=== PATIENT | male | born 1950 | race Caucasian/White ===

== ENCOUNTER 2018-05-22 20:35 | Emergency (ER) | payer MEDICARE, OTHER ==
[~2018-05-22] VITALS: Ht 167.6 cm; Wt 90.0 kg
[~2018-05-22 20:35] MED LIST: ABILIFY5 MG PO; CENTRUM1 TAB PO; LEXAPRO 5MG5 MG PO; MULTIPLE VITAMI1 CAP PO; NEXIUM 20MG CAP20 MG PO; PREVACID 30MG30 M1 PO
[2018-05-22] MEDS ORDERED: ASPIRIN 81M81 MG/TA2 PO (20:51)
[2018-05-22] MEDS ORDERED: CRESTOR 10MG10 MG PO (20:51)
[2018-05-22] MEDS ORDERED: NEXIUM 20MG20 MG PO (20:52)
[2018-05-22 22:03] VITALS: BP 119/91; PULSE 82; TEMP 98.8
== END 2018-05-22 21:50 | disposition home or self-care (01) ==
LOC: COL.ER 20:35
DX: S61.211A Laceration without foreign body of left index finger without damage to nail, initial encounter (principal); K21.9 Gastro-esophageal reflux disease without esophagitis; E78.5 Hyperlipidemia, unspecified; Z23 Encounter for immunization; Z79.82 Long term (current) use of aspirin; W26.0XXA Contact with knife, initial encounter

== ENCOUNTER → 2018-05-29 | Emergency (ER) | payer MEDICARE, OTHER ==
[~2018-05-29] MED LIST changes: +ASPIRIN 81M81 MG/TA2 PO; +CRESTOR 10MG10 MG PO; +NEXIUM 20MG20 MG PO
[2018-05-29 12:08] VITALS: BP 123/90; PULSE 78; TEMP 98.7
== END ==
LOC: COL.ER 11:51
DX: S61.211D Laceration without foreign body of left index finger without damage to nail, subsequent encounter (principal); X58.XXXD Exposure to other specified factors, subsequent encounter

== ENCOUNTER → 2018-12-02 | Outpatient (CLI) | payer MEDICARE, OTHER | LOC: COL.RAD 09:30 | DX: M47.812 Spondylosis without myelopathy or radiculopathy, cervical region (principal); M48.02 Spinal stenosis, cervical region ==

== ENCOUNTER → 2019-08-07 | Outpatient (CLI) | payer MEDICARE, OTHER | LOC: COL.RAD 12:22 | DX: M75.81 Other shoulder lesions, right shoulder (principal); S46.111A Strain of muscle, fascia and tendon of long head of biceps, right arm, initial encounter | CPT/HCPCS: A9585; Q9967 ==

== ENCOUNTER 2019-09-08 09:54 | Inpatient (IN) | payer MEDICARE, OTHER ==
[~2019-09-08] VITALS: Ht 170.2 cm; Wt 90.0 kg
[2019-09-08] MEDS ORDERED: MASON NATURAL2000 IU (10:25)
[2019-09-08] MEDS ORDERED: OMEGA-3 1000 MG1 CAP PO (10:25)
[2019-09-08] MEDS ORDERED: CENTRUM SILVER1 CTB PO (10:25)
[2019-09-08 10:43] LABS: BASO # 0.1 (0.0-0.2); BASO % 0.7 % (0.0-2.0); EOS # 0.1 (0.0-0.7); EOS % 1.8 % (0-4.0); GRAN # 3.9 (1.4-6.5); GRAN % 50.6 % (42.2-75.2); HEMATOCRIT 44.3 % (42.0-52.0); HEMOGLOBIN 14.8 g/dl (13.5-18.0); LYMPH # 3.2 (1.2-3.4); LYMPH % 41.2 % (20.0-51.0); MEAN CELL VOLUME 88 fl (80.0-100.0); MEAN CORPUSCULAR HEMOGLOBIN 29 pg (27.0-31.0); MEAN CORPUSCULAR HGB CONC 33 g/dl (33.0-37.0); MEAN PLATELET VOLUME 10.2 fl (7.4-10.4); MONO # 0.4 (0.1-0.6); MONO % 5.3 % (1.7-9.3); PLATELET COUNT 187 K/mm3 (130-400); RED BLOOD COUNT 5.05 M/mm3 (4.20-5.60); REDCELL DISTRIBUTION WIDTH-CV 14.2 % (11.5-14.5)
[2019-09-08 10:49] LABS: INR 0.9 (0.8-3.0)
[2019-09-08 10:51] LABS: ALANINE AMINOTRANSFERASE 26 U/L (21-72); ALBUMIN 4.5 gm/dL (3.5-5.0); ALKALINE PHOSPHATASE 83 U/L (50-136); ANION GAP 12 mmol/L (7-16); AST,SGOT 29 U/L (15-37); BILIRUBIN,TOTAL 0.6 mg/dL (0.0-1.0); BLOOD UREA NITROGEN 16 mg/dL (9-20); CALCIUM 9.3 mg/dL (8.4-10.2); CARBON DIOXIDE 25 mmol/L (22-30); CHLORIDE 103 mmol/L (98-107); CREATININE, serum 0.91 (0.66-1.25); GLUCOSE 151 mg/dL (74-106); POTASSIUM 3.9 mmol/L (3.4-5.0); SODIUM 140 mmol/L (137-145); TOTAL PROTEIN 7.7 gm/dL (6.4-8.2)
[2019-09-08 11:02] LABS: TROPONIN-I < 0.012 ng/mL (0.000-0.035)
[2019-09-08 14:00] VITALS: BP 144/82; PULSE 62; TEMP 98
--- NOTE | 2019-09-08 15:00 | NUR ---
Patient alert and oriented, answers questions appropriately. Speech clear, hand livestock nutritionist equal. See assessment. Oriented to room/unit. No c/o at this time.
[2019-09-08 16:55] VITALS: BP 143/87; PULSE 73; TEMP 98.1
--- NOTE | 2019-09-08 17:55 | NUR ---
Dr Cooper notified of consult.
[2019-09-08 21:47] VITALS: BP 116/74; PULSE 64; TEMP 98.2
[2019-09-09 00:32] VITALS: BP 100/47; PULSE 62; TEMP 98.2
[2019-09-09 04:53] VITALS: BP 123/60; PULSE 60; TEMP 98.1
[2019-09-09 07:08] VITALS: BP 140/79; PULSE 70; TEMP 97.8
[2019-09-09 07:17] LABS: BASO # 0.1 (0.0-0.2); BASO % 0.8 % (0.0-2.0); EOS # 0.2 (0.0-0.7); EOS % 2.6 % (0-4.0); GRAN # 3.6 (1.4-6.5); GRAN % 54.1 % (42.2-75.2); HEMATOCRIT 40.9 % (42.0-52.0); HEMOGLOBIN 13.6 g/dl (13.5-18.0); LYMPH # 2.3 (1.2-3.4); LYMPH % 35.2 % (20.0-51.0); MEAN CELL VOLUME 87 fl (80.0-100.0); MEAN CORPUSCULAR HEMOGLOBIN 29 pg (27.0-31.0); MEAN CORPUSCULAR HGB CONC 33 g/dl (33.0-37.0); MEAN PLATELET VOLUME 9.7 fl (7.4-10.4); MONO # 0.5 (0.1-0.6); MONO % 6.8 % (1.7-9.3); PLATELET COUNT 186 K/mm3 (130-400); RED BLOOD COUNT 4.69 M/mm3 (4.20-5.60); REDCELL DISTRIBUTION WIDTH-CV 14.1 % (11.5-14.5)
[2019-09-09 07:29] LABS: ALBUMIN 3.8 gm/dL (3.5-5.0); BILIRUBIN,TOTAL 0.5 mg/dL (0.0-1.0); CALCIUM 9.2 mg/dL (8.4-10.2); CREATININE, serum 0.91 (0.66-1.25); POTASSIUM 3.9 mmol/L (3.4-5.0); TOTAL PROTEIN 7.1 gm/dL (6.4-8.2)
[2019-09-09] MEDS ORDERED: LIPITOR 40MG TA40 MG PO (09:03)
[2019-09-09] MEDS ORDERED: PLAVIX 75MG TAB75 MG PO (09:03)
[2019-09-09] MEDS ORDERED: ZESTRIL 5MG5 MG PO (09:04)
[2019-09-09 09:05] LABS: CHOLESTEROL RISK RATIO 4.9
--- NOTE | 2019-09-09 09:15 | NUR ---
Patient alert and oriented, answers questions appropriately. See assessment. No c/o pain or discomfort.
--- NOTE | 2019-09-09 11:18 | NUR ---
Discharge instructions reviewed with patient and spouse, verbalized understanding. Discharged via wheelchair to auto/home with spouse at 1118.
--- NOTE | 2019-09-09 11:56 | NUR ---
Beaver Trapper met with patient to discuss discharge planning. Patient lives in [place] with his Martha (ph#[phone]). Patient sees Dr. Jules for primary care and obtains medications from [facility] with no difficulties. Patient does not use any DME and is independent with ADLS. Patient reports he is in the process of setting up Advance Directives with his comber setter. Patient plans to return home upon discharge.
--- NOTE | 2019-09-09 12:17 | NUR ---
Initial visit; Patient thanked Hearing Healthcare Practitioner for looking in on him and offering comfort and spiritual care.
== END 2019-09-09 11:18 | disposition home or self-care (01) | DRG 66 ==
LOC: COL.ER 09:54 → SURG 11:57
PROVIDERS: Emergency Medicine; Nurse Practitioner Family; ADMIT Student in an Organized Health Care Education/Training Program
DX: I63.511 Cerebral infarction due to unspecified occlusion or stenosis of right middle cerebral artery (principal); K21.9 Gastro-esophageal reflux disease without esophagitis; E78.5 Hyperlipidemia, unspecified; R47.81 Slurred speech; I10 Essential (primary) hypertension; H91.90 Unspecified hearing loss, unspecified ear; Z88.0 Allergy status to penicillin; Z79.82 Long term (current) use of aspirin
CPT/HCPCS: 99239; A9585; G0378; J1650; Q9967

== ENCOUNTER 2021-11-04 08:09 | Day surgery (SDC) | payer MEDICARE, OTHER ==
[~2021-11-04] VITALS: Ht 170.2 cm; Wt 94.9 kg
[~2021-11-04 08:09] MED LIST changes: +CENTRUM SILVER1 CTB PO; +LIPITOR 40MG TA40 MG PO; +MASON NATURAL2000 IU; +OMEGA-3 1000 MG1 CAP PO; +PLAVIX 75MG TAB75 MG PO; +ZESTRIL 5MG5 MG PO
[2021-11-04 09:08] VITALS: BP 124/72; PULSE 67; TEMP 98.8
[2021-11-04] MEDS ORDERED: PROTONIX 40MG T40 MG PO (09:13)
[2021-11-04] MEDS ORDERED: CYMBALTA 30MG30 MG PO (09:14)
[2021-11-04] MEDS ORDERED: PEPCID 20MG TAB20 MG PO (09:14)
[2021-11-04] MEDS ORDERED: AMBIEN 10MG10 MG PO (09:15)
[2021-11-04] MEDS ORDERED: PHARMASSURE ZIN50 MG PO (09:15)
[2021-11-04] MEDS ORDERED: SINGULAIR 110 MG/TAB PO (09:18)
[2021-11-04] MEDS ORDERED: B-121000 MCG PO (09:18)
[2021-11-04] MEDS ORDERED: BETAMETHASONE D15 G1 TP (09:19)
[2021-11-04] MEDS ORDERED: ZYRTEC 10MG10 MG PO (09:19)
[2021-11-04] MEDS ORDERED: ATHLETE'S FOOT1% TP (09:20)
[2021-11-04 10:10] VITALS: BP 133/83; PULSE 66; TEMP 98.8
--- NOTE | 2021-11-04 10:20 | NUR ---
PT ARRIVED TO BAY 2, VSS. DENIES NAUSEA, DROWSY BUT A&O. DENIES NEEDS AT THIS TIME, CALL LIGHT WITHIN REACH.
[2021-11-04 10:35] VITALS: BP 121/68; PULSE 62
[2021-11-04 10:50] VITALS: BP 133/74; PULSE 62
[2021-11-04 11:10] VITALS: BP 108/66; PULSE 75; TEMP 97.4
--- NOTE | 2021-11-04 11:30 | NUR ---
PT MET DISCHARGE CRITERIA, VSS. IV REMOVED WITH OUT COMPLICATIONS, CATHETER INTACT. DISCHARGE INSTRUCTIONS REVIEWED. PT VERBALIZED UNDERSTANDING. PT DC TO HOME VIA WHEELCHAIR TO FRONT ENTRANCE.
== END 2021-11-04 11:54 | disposition home or self-care (01) ==
LOC: SDCO 08:09
DX: K22.2 Esophageal obstruction (principal); K22.70 Barrett's esophagus without dysplasia; K21.9 Gastro-esophageal reflux disease without esophagitis
CPT/HCPCS: C1726; J2704; J7120

== ENCOUNTER 2021-12-12 01:09 | Inpatient (IN) | payer MEDICARE, OTHER ==
[~2021-12-12] VITALS: Ht 167.6 cm; Wt 94.6 kg
[2021-12-12] VITALS (814 sets, daily range): BP systolic 94–130; BP diastolic 52–91; PULSE 48–137; TEMP 98–98.6; O2SAT 77–100
[~2021-12-12 01:09] MED LIST changes: +AMBIEN 10MG10 MG PO; +ATHLETE'S FOOT1% TP; +B-121000 MCG PO; +BETAMETHASONE D15 G1 TP; +CYMBALTA 30MG30 MG PO; +PEPCID 20MG TAB20 MG PO; +PHARMASSURE ZIN50 MG PO; +PROTONIX 40MG T40 MG PO; +SINGULAIR 110 MG/TAB PO; +ZYRTEC 10MG10 MG PO
[2021-12-12 01:26] LABS: BASO # 0.1 K/mm3 (0.0-0.2); EOS # 0.4 K/mm3 (0.0-0.7); EOS % 5.3 % (0.0-4.0); GRAN # 3.3 K/mm3 (1.4-6.5); GRAN % 40.8 % (42.2-75.2); HEMATOCRIT 42.4 % (42.0-52.0); HEMOGLOBIN 14.2 g/dl (13.5-18.0); LYMPH # 3.5 K/mm3 (1.2-3.4); LYMPH % 42.4 % (20.0-51.0); MEAN CELL VOLUME 86 fl (80.0-100.0); MEAN CORPUSCULAR HEMOGLOBIN 29 pg (27-31); MEAN CORPUSCULAR HGB CONC 34 g/dl (33.0-37.0); MEAN PLATELET VOLUME 9.3 fl (7.4-10.4); MONO # 0.8 K/mm3 (0.1-0.6); MONO % 10.3 % (1.7-9.3); PLATELET COUNT 180 K/mm3 (130-400); RED BLOOD COUNT 4.95 M/mm3 (4.20-5.60); REDCELL DISTRIBUTION WIDTH-CV 14.6 % (11.5-14.5)
[2021-12-12 01:45] LABS: ALBUMIN 4.2 gm/dL (3.4-4.8); BILIRUBIN,TOTAL 0.6 mg/dL (0.2-1.2); CALCIUM 9.1 mg/dL (8.4-10.2); CREATININE, serum 0.98 mg/dL (0.72-1.25); POTASSIUM 3.7 mmol/L (3.5-4.5); TOTAL PROTEIN 7.5 gm/dL (6.2-8.1)
[2021-12-12 01:46] LABS: PROTHROMBIN TIME 11.3 SECONDS (9.7-12.8)
[2021-12-12 01:48] LABS: PARTIAL THROMBOPLASTIN TIME 28.3 SECONDS (26.0-37.0)
[2021-12-12 01:50] LABS: TROPONIN-I 0.018 ng/mL (0.00-0.033)
[2021-12-12 02:24] LABS: TSH w REFLEX 4.479 uIU/mL (0.350-4.940)
--- NOTE | 2021-12-12 02:45 | NUR ---
Received report from ED nurse
--- NOTE | 2021-12-12 02:57 | NUR ---
Patient arrives to ICU room 4 via ED stretcher. Patient is alert and oriented and transfers independently to ICU bed. Inital HR ranging 130-140s, AFIB. Other vitals within normal limits. Patient arrives on room air. He is receiving heparin and cardizem drips, see IV drip titration flowsheet. Patient states he does not feel any pain when sitting upright and immoble, however, he feels some chest pressure upon exertion rated 2/10. Sara, hospitalist, aware of patient's arrival.
--- NOTE | 2021-12-12 03:20 | NUR ---
Cardizem titrated to 5mg/hr per hospitalist, Sara, who is at bedside.
--- NOTE | 2021-12-12 03:30 | NUR ---
Patient's belongings include street clothes and a pair of glasses. Patient denies having brought a cellphone or wallet with him. He denies having any removable jewelry on his person. Patient states he does wear bilateral hearing aids, but that he left them at home.
--- NOTE | 2021-12-12 05:20 | NUR ---
Patient converted to SB with HR as low as 48. Sara notified. Orders received to set cardizem to standby and obtain EKG.
--- NOTE | 2021-12-12 07:00 | NUR ---
PT RESTING IN BED. CARDIZEM ON HOLD D\T SB. HEPARIN RUNNING. VSS. WILL CONTINUE TO MONTIOR.
--- NOTE | 2021-12-12 09:36 | NUR ---
Initial visit; Patient thanked Merchandise Appraiser for looking in on him and offering comfort and God's blessings. Merchandise Appraiser will continue to check on patient.
--- NOTE | 2021-12-12 10:28 | NUR ---
buffing line set up worker met with patient to complete intake. Patient reports that he lives at home with his Martha ([phone]) in [place]. Patient reports to being fully independent with his ADL's and does not utilize any DME to assist with mobility. Patient has no home oxygen needs. PCP is Dr.Preeti Dent and he utilizes [facility] for medications with no cost difficulty. Patient reports that he does have a DPOA-HC established and has a copy of it at home. States that his first agent listed is his Martha.
--- NOTE | 2021-12-12 16:10 | NUR ---
Pt transfered to laborer demolition with laborer demolition RN's.
--- NOTE | 2021-12-12 16:49 | NUR ---
PATIENT ALERT AND ORIENTED. NO REPORTS OF CHEST PAIN. FAMILY AT SIDE. SEE MERGE FOR PROCEDURE DETAILS, VS, HEMODYNAMIC MONITORING AND MEDICATION ADMINISTRATION.
--- NOTE | 2021-12-12 17:05 | NUR ---
PT BACK FROM [facility] BLIND DIRECTOR. PT IS AXOX4. PT'S VSS. PT STILL SB ON TELE. PT TO BE TRANSFERED FOR CARDIOTHORASIC SURGERY CONSULT. PT AND AWARE. WILL CONTINUE TO ANNEMARIE.
--- NOTE | 2021-12-12 17:50 | NUR ---
ATTEMPTED TO REMOVE 2ML OF AIR FROM TR BAND. SITE STARTED TO BLEED. AIR REPLACED AND SITE CLEANED. WILL CONTINUE TO MONTIOR.
--- NOTE | 2021-12-12 17:52 | NUR ---
REPORT CALLED TO [facility] AT [facility]. ALL QUESTIONS ANSWERED. EMS SHOULD ARRIVE AT 1800 FOR TRANSPORT. FAMILY UPDATED.
--- NOTE | 2021-12-12 18:23 | NUR ---
[facility] BLOOM AT [facility] CALLED AND NOTIFIED OF HIGH XA LEVEL, HEPARIN ON HOLD FOR 2 HOURS, AND THE BLEEDING FROM TR BAND WHEN AIR REMOVED.
--- NOTE | 2021-12-12 18:54 | NUR ---
PT TRANSFERED TO [facility] BY EMS. REPORT GIVEN TO EMS.
== END 2021-12-12 18:53 | disposition short-term general hospital (02) | DRG 287 ==
LOC: COL.ER 01:09 → ICU 02:28
PROVIDERS: Emergency Medicine; Nurse Practitioner; Student in an Organized Health Care Education/Training Program; ADMIT Internal Medicine
PROC: 4A023N7 Measurement of Cardiac Sampling and Pressure, Left Heart, Percutaneous Approach (ICD-10-PCS; principal; 2021-12-12)
PROC: B2111ZZ Fluoroscopy of Multiple Coronary Arteries using Low Osmolar Contrast (ICD-10-PCS; 2021-12-12)
DX: I48.91 Unspecified atrial fibrillation (principal); I25.110 Atherosclerotic heart disease of native coronary artery with unstable angina pectoris; I10 Essential (primary) hypertension; K21.9 Gastro-esophageal reflux disease without esophagitis; F32.A Depression, unspecified; Z86.73 Personal history of transient ischemic attack (TIA), and cerebral infarction without residual deficits; Z79.82 Long term (current) use of aspirin
CPT/HCPCS: 99223-AI; C1769; C1887; J1644; J2250; J2270; J3010

== ENCOUNTER 2021-12-23 14:42 | Inpatient (IN) | payer MEDICARE, OTHER ==
[~2021-12-23] VITALS: Ht 175.3 cm; Wt 91.7 kg
[2021-12-23] MEDS ORDERED: TYLENOL 325MG325 MG PO (15:39)
[2021-12-23] MEDS ORDERED: PACERONE200 MG PO (15:41)
[2021-12-23] MEDS ORDERED: CORDARONE200 MG/TAB PO (15:41)
[2021-12-23] MEDS ORDERED: DULCOLAX TAB5 MG PO (15:42)
[2021-12-23] MEDS ORDERED: CEPHALEXIN500 M1 PO (15:44)
[2021-12-23] MEDS ORDERED: DSS PO (15:45)
[2021-12-23] MEDS ORDERED: LASIX 40MG TABL40 MG PO (15:46)
[2021-12-23] MEDS ORDERED: MIRALAX PA17 GM/Dose PO ×3 (15:46→15:47)
[2021-12-23] MEDS ORDERED: K-DUR20 MEQ PO (15:48)
[2021-12-23] MEDS ORDERED: ASPIRIN E.C. 8181 MG PO (15:49)
[2021-12-23] MEDS ORDERED: LIPITOR 80MG80 MG PO (15:49)
[2021-12-23] MEDS ORDERED: CENTRUM SILVER1 TAB PO (15:50)
[2021-12-23] MEDS ORDERED: ZYRTEC 10MG10 MG PO (15:50)
[2021-12-23] MEDS ORDERED: PLAVIX 75MG TAB75 MG PO (15:51)
[2021-12-23] MEDS ORDERED: CYMBALTA 30MG30 MG PO (15:51)
[2021-12-23] MEDS ORDERED: EPA FISH OIL1000 MG PO (15:51)
[2021-12-23] MEDS ORDERED: FLONASEALLERGY NS (15:52)
[2021-12-23] MEDS ORDERED: PROTONIX 40MG T40 MG PO (15:53)
[2021-12-23] MEDS ORDERED: SINGULAIR 110 MG/TAB PO (15:53)
[2021-12-23] MEDS ORDERED: PHARMASSURE ZIN50 MG PO (15:54)
[2021-12-23] MEDS ORDERED: B-12 500 MCG PO (15:54)
--- NOTE | 2021-12-23 17:20 | NUR ---
Pt. arrived to IPR unit via transportation van from [facility] Pt. transferred to and escorted to room. Admission intake and physical exam completed. Orientation provided to room/unit. Patient had no further questions. Call light is within his reach
[2021-12-23 18:09] VITALS: BP 121/69; PULSE 78; TEMP 98.2
[2021-12-24 05:50] VITALS: BP 113/65; PULSE 69; TEMP 98.9
--- NOTE | 2021-12-24 07:02 | NUR ---
Shift report received from private wealth advisor RN. Pt. awake and sitting up in bedside chair. He denies pain or discomfort. Denies pain or discomfort. Call light is within his reach
--- NOTE | 2021-12-24 07:04 | NUR ---
pt got up 2-3 times during the noc without calling for help first, once bed alarm went off he stopped and waited for staff to come help. no reported hallucinations this shift. up to restroom and in room with SBA. wasn't able to use his home cpap during the noc, stated he couldn't get it to work, RT was going to look at it. no c/o pain or discomfort, chest incision CDI.
--- NOTE | 2021-12-24 11:40 | NUR ---
Pt. sitting in recliner in room. Chair alarm is on. He has returned from group therapy. Denies pain or discomfort. Incisions to chest and left post. knee are CDI, AUTO PARKER. Reminded pt. to ask for help before getting up on his own. He v/u. He denies any hallucinations throughout shift so far. Call light is within his reach
--- NOTE | 2021-12-24 12:46 | NUR ---
SW met with patient to complete intake. Patient states that he lives with Martha [phone] in [facility]. Patient states that he did not utilize a walker prior to stay, but has been utilizing one in facility. Patient states he does not utilize any home health services at this time and is independent with ADL's. PCP is Dr. Dent, pharmacy is [facility]. DPOA/HC is spouse. Patient states he plans to return to his home upon DC. SW will continue to follow. DC plan: home
[2021-12-24 17:41] VITALS: BP 108/50; PULSE 95; TEMP 97.6
--- NOTE | 2021-12-24 18:33 | NUR ---
Pt. supervised as he repositioned from bed to recliner. Chair alarm is turned on. Pt. states that he would like to sit up for awhile and put his feet up. He denies pain or discomfort. He reports some itching along mediansternotomy incision. Peeling skin & scabs noted along incision. Edges are well-approximated. Moisturizing lotion applied to itchy areas of skin. Pt. denies further needs at this time. Call light is within his reach
--- NOTE | 2021-12-25 05:00 | NUR ---
PT reports nose bleed from right nostril after cleaning out nares, small amt of bright red blood observed on gauze pad, replaced with new gauze, bleeding stopped after a few minutes.
[2021-12-25 05:12] VITALS: BP 135/57; PULSE 69; TEMP 98.2
--- NOTE | 2021-12-25 08:00 | NUR ---
Patient sitting up in the recliner eating breakfast. A&Ox4. VSS. Denies pain and discomfort. Reports itching at incision site mid sternal. Call light within reach
[2021-12-25 17:43] VITALS: BP 122/58; PULSE 68; TEMP 98.2
--- NOTE | 2021-12-25 18:20 | NUR ---
Patient sat up in the recliner and bench most of the day. A&O, with intermittent confusion. Nursing staff and reorienting the patient as needed. Incision midline sternum and left posterior knee. Patient walked in the hallway with walker and walked behind the patient will the wheelchair. Patient tolerated walking. Patient independent with repositioning and feeds. Denies pain and discomfort. Uses heart pillow to brace with exertion. Call light within reach
[2021-12-26 06:05] VITALS: BP 124/57; PULSE 67; TEMP 97.9
--- NOTE | 2021-12-26 06:47 | NUR ---
Shift report received from music theory teacher RN. Pt resting in bed, awake. Denies pain or discomfort. Mod I in room. Denies further needs at this time. Call light is within his reach
--- NOTE | 2021-12-26 10:20 | NUR ---
Pt has returned to room after walking with PT. He is resting in recliner in room. He denies pain or discomfort. Denies further needs. Call light is within his reach
--- NOTE | 2021-12-26 15:35 | NUR ---
Pt sitting in recliner in room. He has completed afternoon PT. Hospitalist in room for consult. Pt. denies pain or discomfort. Denies further needs. Call light is within his reach
[2021-12-26 16:39] VITALS: BP 117/54; PULSE 65; TEMP 98.8
--- NOTE | 2021-12-26 20:20 | NUR ---
Patient is resting in bed, watching TV. Alert and oriented x 4, VSS. Hard of hearing. Assessment completed, medications provided. No other needs at this time. Call light within reach.
--- NOTE | 2021-12-27 05:49 | NUR ---
Patient had an uneventful night. Report will be given to day RN.
[2021-12-27 05:51] VITALS: BP 122/54; PULSE 70; TEMP 98.1
[2021-12-27 06:35] LABS: CALCIUM 9.1 mg/dL (8.4-10.2); CREATININE, serum 0.88 mg/dL (0.72-1.25); POTASSIUM 4.5 mmol/L (3.5-4.5)
--- NOTE | 2021-12-27 08:40 | NUR ---
PATIENT ALERT AND ORIENTED X3. TOOK MORNING MEDICATIONS WELL. WORKING WITH THERAPY NOW. NO NEW CONCERNS.
--- NOTE | 2021-12-27 14:53 | NUR ---
SW checked in with patient. Patient states that he feels like therapy is going good and has no concerns at this time. Assisted getting patient ice chips per request.
[2021-12-27 18:00] VITALS: BP 120/40; PULSE 71; TEMP 98.2
--- NOTE | 2021-12-27 20:20 | NUR ---
Patient is resting in bed, alert and oriented x 4, VSS. Assessment completed, medications provided, no other needs at this time. Call light within reach.
[2021-12-28 05:39] VITALS: BP 101/43; PULSE 65; TEMP 98.2
--- NOTE | 2021-12-28 06:03 | NUR ---
Patient was able to sleep better this night. Independent in the room. Report will be given to day RN.
--- NOTE | 2021-12-28 07:10 | NUR ---
Shift report received from admissions nurse RN. Pt. resting in bed with HOB elevated. Call light is within his reach
[2021-12-28] MEDS ORDERED: CEPHALEXIN500 M1 PO (09:12)
[2021-12-28] MEDS ORDERED: CORDARONE200 MG/TAB PO (09:13)
[2021-12-28] MEDS ORDERED: LIPITOR 80MG80 MG PO (09:14)
[2021-12-28] MEDS ORDERED: PACERONE200 MG PO (09:14)
[2021-12-28] MEDS ORDERED: ASPIRIN E.C. 8181 MG PO (09:15)
[2021-12-28] MEDS ORDERED: K-DUR20 MEQ PO (09:15)
[2021-12-28] MEDS ORDERED: LASIX 40MG TABL40 MG PO (09:15)
--- NOTE | 2021-12-28 10:41 | NUR ---
ANKUSH followed up with patient. Patient scheduled to discharge later today. Patient prented with MARIA ESTHER.IM form and education provided. Patient verbalized agreement with discharge plan of going home later today with outpatient therapy. Patients signed original placed in chart and copy provided back to the patient. Spoke with the patient that the recommendation is to go home with OP PT/ST. Patient provided options of where he could get therapy. Patient would like orders to be sent to [facility] side. Discussed recommendation of getting a walker and a shower chair. Patient states that his was planning on buying a shower chair later today. He would like his walker order sent to [facility]. He gets his CPAP supplies there and is established with them. ANKUSH contacted patient's Martha who agrees to picking up his walker. Informed her that the patient will have OP PT needs and that he would like to be established at [facility]. Notified her that his orders will be sent and they will call to schedule a time. Care team updated. Discharge plan: Home with OP PT/ST; to pickle water pump operator his walker.
--- NOTE | 2021-12-28 12:38 | NUR ---
Pt. Health Summary, Discharge Summary, and Home Meds reviewed with patient and his . Discussed follow-up appointments. Belongings were gathered by the patient and his . They had no further questions. Pt. escorted via wheelchair to vehicle and seatbelted for ride home
== END 2021-12-28 12:50 | disposition home or self-care (01) | DRG 947 ==
PROVIDERS: ADMIT Physical Medicine & Rehabilitation Sports Medicine
DX: R53.81 Other malaise (principal); I21.4 Non-ST elevation (NSTEMI) myocardial infarction; E87.1 Hypo-osmolality and hyponatremia; D62 Acute posthemorrhagic anemia; R44.2 Other hallucinations; I25.10 Atherosclerotic heart disease of native coronary artery without angina pectoris; R41.89 Other symptoms and signs involving cognitive functions and awareness; K21.9 Gastro-esophageal reflux disease without esophagitis; R26.89 Other abnormalities of gait and mobility; I25.5 Ischemic cardiomyopathy; K59.00 Constipation, unspecified; I48.0 Paroxysmal atrial fibrillation; G47.33 Obstructive sleep apnea (adult) (pediatric); J30.2 Other seasonal allergic rhinitis; Z86.73 Personal history of transient ischemic attack (TIA), and cerebral infarction without residual deficits; Z95.1 Presence of aortocoronary bypass graft; Z88.0 Allergy status to penicillin; Z73.6 Limitation of activities due to disability; Z79.2 Long term (current) use of antibiotics; Z79.82 Long term (current) use of aspirin; Z79.899 Other long term (current) drug therapy
CPT/HCPCS: 99222; J1644

== ENCOUNTER 2022-01-04 14:26 | Outpatient (RCR) | payer MEDICARE, OTHER ==
[~2022-01-04 14:26] MED LIST changes: +ASPIRIN E.C. 8181 MG PO; +B-12 500 MCG PO; +CENTRUM SILVER1 TAB PO; +CEPHALEXIN500 M1 PO; +CORDARONE200 MG/TAB PO; +DSS PO; +DULCOLAX TAB5 MG PO; +EPA FISH OIL1000 MG PO; +FLONASEALLERGY NS; +K-DUR20 MEQ PO; +LASIX 40MG TABL40 MG PO; +LIPITOR 80MG80 MG PO; +MIRALAX PA17 GM/Dose PO; +PACERONE200 MG PO; +TYLENOL 325MG325 MG PO
== END 2022-01-10 | disposition home or self-care (01) ==
LOC: WSST
DX: Z48.812 Encounter for surgical aftercare following surgery on the circulatory system (principal); Z95.1 Presence of aortocoronary bypass graft

== ENCOUNTER 2022-02-08 14:30 | Outpatient (RCR) | payer MEDICARE, OTHER | END 2022-02-09 | disposition home or self-care (01) | LOC: MKS.ESL.PT | DX: R48.9 Unspecified symbolic dysfunctions (principal); Z95.1 Presence of aortocoronary bypass graft; I25.10 Atherosclerotic heart disease of native coronary artery without angina pectoris ==

== ENCOUNTER 2022-03-08 14:30 | Outpatient (RCR) | payer MEDICARE, OTHER | END 2022-03-12 | disposition home or self-care (01) | LOC: MKS.ESL.PT | DX: I25.10 Atherosclerotic heart disease of native coronary artery without angina pectoris (principal); Z95.1 Presence of aortocoronary bypass graft ==

== ENCOUNTER → 2022-04-12 | Outpatient (RCR) | payer MEDICARE, OTHER | END | disposition home or self-care (01) | LOC: MKS.ESL.PT | DX: Z95.1 Presence of aortocoronary bypass graft (principal) ==

== ENCOUNTER 2022-11-01 11:46 | Day surgery (SDC) | payer MEDICARE, OTHER ==
[~2022-11-01] VITALS: Ht 175.3 cm; Wt 93.5 kg
[2022-11-01] MEDS ORDERED: PEPCID 20MG TAB20 MG PO (12:24)
[2022-11-01] MEDS ORDERED: AMBIEN 10MG10 MG PO (12:25)
[2022-11-01] MEDS ORDERED: FERROUS SU325 MG/TAB PO (12:27)
[2022-11-01 13:28] VITALS: BP 128/78; PULSE 68; TEMP 98.1
[2022-11-01 13:40] VITALS: BP 122/64; PULSE 60; TEMP 98.1
[2022-11-01 13:55] VITALS: BP 123/66; PULSE 56
[2022-11-01 14:10] VITALS: BP 116/68; PULSE 62
[2022-11-01 14:25] VITALS: BP 125/76; PULSE 60
--- NOTE | 2022-11-01 14:40 | NUR ---
1340 RETURNS TO ROOM 7 PER CART. AWAKE, ALERT. AMBULATES TO RECLINER WITH STANDBY ASSIST. RESP UNLABORED. DENIES NAUSEA, ABD PAIN OR DYSPHAGIA. VITAL SIGNS OBTAINED. CALL LIGHT AT SIDE. IN ROOM 1355 TOLERATES PO MUFFIN AND SODA WITHOUT NAUSEA. SWALLOWS WITHOUT DIFFICULTY 1405 DR BAILON HERE TO VISIT WITH PATIENT 1420 DISCHARGE INSTRUCTIONS REVIEWED. PATIENT VERBALIZES UNDERSTANDING. COPY PROVIDED IN DISCHARGE FOLDER 1430 DRESSES SELF. THEN AMBULATES TO BATHROOM. VOIDS
== END 2022-11-01 14:40 | disposition home or self-care (01) ==
LOC: SDCO 11:46
DX: Z12.11 Encounter for screening for malignant neoplasm of colon (principal); D50.9 Iron deficiency anemia, unspecified; K64.0 First degree hemorrhoids; K44.9 Diaphragmatic hernia without obstruction or gangrene; K29.71 Gastritis, unspecified, with bleeding; G47.33 Obstructive sleep apnea (adult) (pediatric); I63.9 Cerebral infarction, unspecified; K22.70 Barrett's esophagus without dysplasia; K58.1 Irritable bowel syndrome with constipation; R43.9 Unspecified disturbances of smell and taste; K22.2 Esophageal obstruction; E66.9 Obesity, unspecified; I25.10 Atherosclerotic heart disease of native coronary artery without angina pectoris; I65.23 Occlusion and stenosis of bilateral carotid arteries; I48.0 Paroxysmal atrial fibrillation; I08.0 Rheumatic disorders of both mitral and aortic valves; I10 Essential (primary) hypertension; Z86.010 Personal history of colon polyps; Z68.33 Body mass index [BMI] 33.0-33.9, adult; Z95.1 Presence of aortocoronary bypass graft; Z79.899 Other long term (current) drug therapy; Z99.81 Dependence on supplemental oxygen; Z79.82 Long term (current) use of aspirin; Z79.01 Long term (current) use of anticoagulants
CPT/HCPCS: 43239; G0105; J2704; J7120